=== PATIENT | male | born 1995 | race Caucasian/White ===

== ENCOUNTER 2024-08-01 06:59 | Day surgery (SDC) | payer OTHER ==
[2024-08-01 07:31] LABS: HEMATOCRIT 45.4 % (38.4-49.7); HEMOGLOBIN 15.5 g/dL (12.9-16.9); MEAN CORPUSCULAR HEMOGLOBIN 29.9 pg (31.6-35.5); MEAN CORPUSCULAR HGB CONC 34.1 g/dL (31.6-35.5); MEAN CORPUSCULAR VOLUME 87.5 fL (81.4-99.0); RED BLOOD CELL COUNT 5.19 M/uL (4.14-5.76); WHITE BLOOD CELL COUNT,WBC 11.5 K/uL (3.2-11.0)
[2024-08-01] MEDS: Lactated Ringers 1,000 ML IV SCH (07:37)
[2024-08-01 07:48] LABS: ANION GAP 12.8 mmol/L (5.0-14.0); CALCIUM 9.1 mg/dL (8.5-10.1); CREATININE 1.2 mg/dL (0.8-1.3); EST CRCL DRUG DOSING (CG) 101.72 mL/min; POTASSIUM,K 3.8 mmol/L (3.6-5.2)
[2024-08-01] MEDS ORDERED: Dexamethasone 4 MG/ML SDV ONE ×2 (08:00→08:16)
[2024-08-01] MEDS ORDERED: fentaNYL 250 MCG/5 ML SDV ONE (08:16)
[2024-08-01] MEDS ORDERED: Succinylcholine 200 MG/10 ML MDV ONE (08:16)
[2024-08-01] MEDS ORDERED: Neostigmine Methylsulfate 10 MG/10 ML MDV ONE (08:16)
[2024-08-01] MEDS ORDERED: Glycopyrrolate 0.2 MG/ML 5 ML MDV ONE (08:16)
[2024-08-01] MEDS ORDERED: Propofol 200 MG/20 ML SDV ONE (08:16)
[2024-08-01] MEDS ORDERED: Rocuronium 50 MG/5 ML Vial ONE (08:16)
[2024-08-01] MEDS ORDERED: Ondansetron 4 MG/2 ML SDV ONE (08:16)
[2024-08-01] MEDS: ceFAZolin 2 GM in Premix Bag 1 BAG IV ONE (09:20)
[2024-08-01] MEDS: Bupivacaine 0.5%/EPINEPHrine 1:200,000 50 ML MDV ONE (09:20)
[2024-08-01] MEDS: oxyCODONE 5 MG Tab PO PRN (10:46)
== END 2024-08-01 11:45 | disposition home or self-care (01) ==
LOC: JP.SDS 06:59
PROVIDERS: ATTEND Surgery
DX: L05.91 Pilonidal cyst without abscess (principal); E66.9 Obesity, unspecified
CPT/HCPCS: 00300; 11770; 36415; 80048; 85027; 87070; 87075; 87077; 87186; 87205; A9270; J0330; J0690; J1100; J1596; J2405; J2704; J2710; J3010; J3490; J7120